=== PATIENT | female | born 1975 | race Two or more races ===

== ENCOUNTER 2018-05-21 12:33 | Inpatient (IN) | payer OTHER ==
[~2018-05-21] VITALS: Ht 165.1 cm; Wt 97.5 kg
[~2018-05-21 12:33] MED LIST: CLONAZEPAM0.5 MG PO; CYMBALTA60 MG PO; FOLIC ACID0.4 MG; NAPROXEN500 MG PO; PRENATAL + DHA1 EAC1; SYNTHROID50 MCG PO; WELLBU PO
[2018-05-21] MEDS ORDERED: GABAPENTIN800 MG PO (13:29)
[2018-05-24] MEDS ORDERED: WELLBUTRIN XL300 MG PO (08:37)
[2018-05-26] MEDS ORDERED: CODE1TAB37 PO (13:11)
== END 2018-05-26 14:02 | DRG 743 ==
LOC: SURH 05-24 07:30 → OB/GYN 05-24 08:20 → O/R 05-24 08:20 → CIR.AMB 05-24 11:57 → EDSTATUS 05-24 12:28 → SURH 05-24 12:30 → OB/GYN 05-24 15:46
PROVIDERS: Obstetrics & Gynecology
PROC: 0DNU4ZZ Release Omentum, Percutaneous Endoscopic Approach (ICD-10-PCS; 2018-05-24)
PROC: 0UQF4ZZ Repair Cul-de-sac, Percutaneous Endoscopic Approach (ICD-10-PCS; 2018-05-24)
PROC: 0USG4ZZ Reposition Vagina, Percutaneous Endoscopic Approach (ICD-10-PCS; 2018-05-24)
PROC: 0TJB8ZZ Inspection of Bladder, Via Natural or Artificial Opening Endoscopic (ICD-10-PCS; 2018-05-24)
PROC: 0UT9FZZ Resection of Uterus, Via Natural or Artificial Opening With Percutaneous Endoscopic Assistance (ICD-10-PCS; principal; 2018-05-24 07:30)
PROC: 0UT6FZZ Resection of Left Fallopian Tube, Via Natural or Artificial Opening With Percutaneous Endoscopic Assistance (ICD-10-PCS; 2018-05-24 07:30)
DX: N93.8 Other specified abnormal uterine and vaginal bleeding (principal); N92.1 Excessive and frequent menstruation with irregular cycle; N73.6 Female pelvic peritoneal adhesions (postinfective)